=== PATIENT | female | born 1980 | race Caucasian/White ===

== ENCOUNTER 2021-05-29 13:48 | Observation (INO) ==
[2021-05-29] MEDS ORDERED: IOPAMIDOL 100 ML BOTTLE IV ONE (13:49)
[2021-05-29] MEDS ORDERED: ONDANSETRON 4 MG/2 ML VIAL IV ONE (14:25)
[2021-05-29] MEDS ORDERED: PHENobarb/HYOSCY/ATROPINE/SCOP 1 DOSE BOTTLE PO ONE (14:25)
--- NOTE | 2021-05-29 14:41 | Emergency Department Note ---
Nausea/Vomiting/Diarrhea HPI <Queenie Mcgraw PA-C - Last Filed: 05/29/21 19:06> General Chief complaint: Nausea/Vomiting/Diarrhea Time Seen by Provider: 05/29/21 13:58 Source: patient Mode of arrival: ambulatory Limitations: no limitations History of Present Illness HPI Narrative: This is a 41-year-old female patient who was in her usual state of health until this morning when she had an episode of sharp substernal chest pain/epigastric pain followed by an episode of nausea and vomiting. This episode was self- limiting, and then it came back even more intensely followed by another episode of nausea and vomiting. She attempted positional changes to see if this would relieve her symptoms, but it did not. The pain again was self-limiting when she came to the ER and she is currently denying pain or nausea. She denies hematemesis. Does not have a history of GERD, does not feel like this was heartburn. She has no history of coronary artery disease. To her knowledge no family history of early heart disease. No history of clotting disorders or pulmonary embolus. No known history of dissections. Does not use excessive ibuprofen. No history of GI bleeding. No melena or hematochezia. Related Data Home Medications Medication Instructions Recorded Confirmed No Known Home Meds 10/08/19 05/29/21 Allergies Allergy/AdvReac Type Severity Reaction Status Date / Time No Known Drug Allergies Allergy Unverified 10/08/19 12:16 Review of Systems <Queenie Mcgraw PA-C - Last Filed: 05/29/21 19:06> ROS ROS Narrative: Narrative: All systems ED: reviewed and negative except as stated. PFSH <Queenie Mcgraw PA-C - Last Filed: 05/29/21 19:06> Narrative Patient History Narrative: Narrative: Medical/Surgical/Family History All Active Problems (Updated 05/29/21 @ 20:26 by Edi Rocha MD) Cholecystitis, acute with cholelithiasis (Acute) Acute calculous cholecystitis (Acute) Injury of right hand (Acute) Surgical History History of hysterectomy Social History Smoking Status: Never smoker Exam <FELICIANO Salmon Last Filed: 05/29/21 19:06> Narrative Narrative: General: AOx3, NAD, nontoxic appearing. Pleasant and conversant. HEENT: PERRL, EOMI, normocephalic. Moist mucous membranes. Normal facies and normal dentition. Chest: Symmetric, no pain to palpation Respiratory: Lungs clear to auscultation bilaterally. No respiratory distress. Unlabored breathing. Heart: Regular rate and rhythm, no murmurs/clicks/rubs. Abdomen: Non-tender, Non distended, normal bowel tones. Negative Feliciano's, negative McBurney's. No organomegaly. Extremities: Warm and well perfused. No edema. DP 2+ bilaterally. No venous stasis. No unilateral leg swelling. Neuro: No focal deficits. Cranial nerves II-XII grossly normal. Moves all fours against gravity. Skin: Warm dry, no rashes or lesions, no cyanosis. Psych: Normal mood and affect Heme/Lymph: No abnormal bruising General Limitations: no limitations Course <Queenie Mcgraw PA-C - Last Filed: 05/29/21 19:06> Course Course Narrative: 41-year-old female patient presents with chest pain/epigastric pain Reevaluation(s) Reevaluation #1: Obtain basic labs, troponin, chest x-ray and EKG Establish IV and give IV antiemetics, and analgesics Reevaluation #2: EKG is normal sinus rhythm with a rate of [address] deviations to suggest ischemia. She has normal axis, normal intervals. [id number] troponin is undetectable Chest x-ray within normal limits CBC with a white blood cell count of 13,600, no left shift, CMP with slight elevation of AST to 41, otherwise unremarkable Nausea is controlled but patient is still having significant pain after morphine. She states it is "ramping back up." Patient is still having significant pain--> obtain CT of the abdomen pelvis with contrast to rule out SB O, gastric perforation, pancreatitis, cholecystitis Reevaluation #3: CT abdomen pelvis suggests possible cholecystitis. Abdominal ultrasound has been ordered and is pending Give additional Dilaudid 1 mg Additional Reevaluation(s): Abdominal ultrasound shows acute cholecystitis. I discussed case with Dr. Rocha would like the patient admitted for IV antibiotics tonight laparoscopic cholecystectomy tomorrow morning. Patient's pain is controlled with Dilaudid 1 mg Vital Signs Vital signs: Vital Signs Temperature 97.7 F 05/29/21 13:49 Pulse Rate 104 H 05/29/21 13:49 Respiratory Rate 16 05/29/21 13:49 Blood Pressure 134/79 05/29/21 13:49 Pulse Oximetry (%) 100 05/29/21 13:49 Temperature 97.8 F 05/30/21 04:00 Pulse Rate 73 05/30/21 04:00 Respiratory Rate 16 05/30/21 07:01 Blood Pressure 127/77 05/30/21 04:00 Pulse Oximetry (%) 98 05/30/21 07:01 [facility] <Queenie Mcgraw PA-C - Last Filed: 05/29/21 19:06> [facility] Narrative Medical decision making narrative: Acute cholecystitis I discussed case with Dr. Rocha who will take the patient for admission and remove her gallbladder tomorrow. I have started IV Zosyn. Lab Data Result diagrams: 05/30/21 05:27 05/30/21 05:27 Labs: Lab Results 05/29/21 05/29/21 05/29/21 Range/Units 14:37 14:37 14:37 WBC 13.6 H (4.5-11.0) K/mcL RBC 4.43 (3.59-5.38) M/mcL Hgb 12.5 (11.2-15.7) g/dL Hct 38.0 (34.1-44.9) % MCV 85.8 (80.0-100.0) fL MCH 28.2 (26.0-34.0) pg MCHC 32.9 (31.0-36.0) g/dL RDW 14.2 (11.5-14.5) % Plt Count 379 (140-440) K/mcL MPV 11.9 H (7.4-10.4) fL Seg Neutrophils % 76 (38-78) % Band Neutrophils % 7 (0-10) % Lymphocytes % 13 L (15-49) % Monocytes % (Manual) 2 (1-12) % Eosinophils % (Manual) 2 (0-7) % Platelet Estimate Normal (Normal) RBC Morphology Normal (Normal) Sodium 137 (133-145) mmol/L Potassium 3.6 (3.3-5.1) mmol/L Chloride 100 (96-108) mmol/L Carbon Dioxide 26 (22-30) mmol/L Anion Gap 11.0 (8.0-16.0) BUN 10 (6-20) mg/dL Creatinine 0.8 (0.6-1.1) mg/dL GFR Calculation 90 Glucose 109 H (70-105) mg/dL Calcium 9.1 (8.6-10.4) mg/dL Total Bilirubin 0.6 (0.1-1.0) mg/dL AST 41 H (<32) U/L ALT 21 (<40) U/L Alkaline Phosphatase 77 (39-117) U/L Total Protein 7.8 (5.9-8.4) gm/dL Albumin 4.4 (3.2-5.2) gm/dL Globulin 3.4 (2.2-3.7) gm/dL Albumin/Globulin Ratio 1.3 (1.0-2.3) Urine Color Urine Appearance (Clear) Urine pH (5.0-9.0) Ur Specific [place] (1.000-1.035) Urine Protein (Negative) mg/dL Urine Glucose (UA) (Negative) mg/dL Urine Ketones (Negative) mg/dL Urine Occult Blood (Negative) rasheeda/mcL Urine Nitrate (Negative) Urine Bilirubin (Negative) mg/dL Urine Urobilinogen mg/dL Ur Leukocyte Esterase (Negative) /uL Urine RBC (0-3) /hpf Urine WBC (0-4) /hpf Ur Squamous Epith Cells (0-4) /hpf Urine Bacteria (0) /hpf Urine Mucus (None) /hpf Ur Culture Indicated? POC Troponin I 0 L (0.02-0.08) ng/mL 05/29/21 Range/Units 16:45 WBC (4.5-11.0) K/mcL RBC (3.59-5.38) M/mcL Hgb (11.2-15.7) g/dL Hct (34.1-44.9) % MCV (80.0-100.0) fL MCH (26.0-34.0) pg MCHC (31.0-36.0) g/dL RDW (11.5-14.5) % Plt Count (140-440) K/mcL MPV (7.4-10.4) fL Seg Neutrophils % (38-78) % Band Neutrophils % (0-10) % Lymphocytes % (15-49) % Monocytes % (Manual) (1-12) % Eosinophils % (Manual) (0-7) % Platelet Estimate (Normal) RBC Morphology (Normal) Sodium (133-145) mmol/L Potassium (3.3-5.1) mmol/L Chloride (96-108) mmol/L Carbon Dioxide (22-30) mmol/L Anion Gap (8.0-16.0) BUN (6-20) mg/dL Creatinine (0.6-1.1) mg/dL GFR Calculation Glucose (70-105) mg/dL Calcium (8.6-10.4) mg/dL Total Bilirubin (0.1-1.0) mg/dL AST (<32) U/L ALT (<40) U/L Alkaline Phosphatase (39-117) U/L Total Protein (5.9-8.4) gm/dL Albumin (3.2-5.2) gm/dL Globulin (2.2-3.7) gm/dL Albumin/Globulin Ratio (1.0-2.3) Urine Color Yellow Urine Appearance Clear (Clear) Urine pH 7.0 (5.0-9.0) Ur Specific [place] 1.015 (1.000-1.035) Urine Protein Negative (Negative) mg/dL Urine Glucose (UA) Negative (Negative) mg/dL Urine Ketones Negative (Negative) mg/dL Urine Occult Blood Negative (Negative) rasheeda/mcL Urine Nitrate Negative (Negative) Urine Bilirubin Negative (Negative) mg/dL Urine Urobilinogen Normal mg/dL Ur Leukocyte Esterase Negative (Negative) /uL Urine RBC < 1 (0-3) /hpf Urine WBC 0 (0-4) /hpf Ur Squamous Epith Cells 1 (0-4) /hpf Urine Bacteria None (0) /hpf Urine Mucus Few A (None) /hpf Ur Culture Indicated? No POC Troponin I (0.02-0.08) ng/mL ED POC Tests ED POC Tests: ELIZABETH - SARS Antigen Negative Discharge Plan Patient/Caregiver Discharge Instructions Pt seen by SUPERVISOR SANDBLASTER/PA only: Yes Clinical Impression: Acute calculous cholecystitis Patient Disposition: Xfer As Inpt ([facility]) Condition: Good Discharge Date/Time: 05/29/21 18:40 Discharge Location: [facility]
[2021-05-29] MEDS ORDERED: morphine 4 MG/ML VIAL IV ONE (15:06)
[2021-05-29 15:34] LABS: Hemoglobin 12.5 g/dL (11.2-15.7); Mean Cell Volume 85.8 fL (80.0-100.0); Mean Corpuscular HGB Conc 32.9 g/dL (31.0-36.0); Mean Platelet Volume 11.9 fL (7.4-10.4); Platelet Count 379 K/mcL (140-440); RBC 4.43 M/mcL (3.59-5.38); Red Cell Distribution Width 14.2 % (11.5-14.5); WBC 13.6 K/mcL (4.5-11.0)
--- NOTE | 2021-05-29 15:59 | XRay Report ---
INDICATION: query dissection TECHNIQUE: AP portable upright chest x-ray COMPARISON: None FINDINGS: Lungs:Lungs are negative. No focal pulmonary parenchymal infiltrate or mass Heart, vascular:No significant cardiomegaly. Pulmonary vascularity is normal. No pulmonary edema or pulmonary congestion Mediastinum, elvin:No mediastinal widening. No hilar mass Pleura:No pleural fluid. No pleural-based mass or calcification Skeletal:Negative. IMPRESSION: Negative AP chest x-ray Interpreted and Authenticated by: Jean Carlos Lorenzo 05/29/21
[2021-05-29 16:02] LABS: ALT/SGPT 21 U/L (<40); AST/SGOT 41 U/L (<32); Albumin 4.4 gm/dL (3.2-5.2); Albumin/Globulin Ratio 1.3 (1.0-2.3); Alkaline Phosphatase 77 U/L (39-117); Bilirubin,Total 0.6 mg/dL (0.1-1.0); Blood Urea Nitrogen 10 mg/dL (6-20); Calcium 9.1 mg/dL (8.6-10.4); Carbon Dioxide 26 mmol/L (22-30); Chloride 100 mmol/L (96-108); Globulin 3.4 gm/dL (2.2-3.7); Glomerular Filtration Rate 90; Glucose 109 mg/dL (70-105)
[2021-05-29 16:19] LABS: Band Neutrophils % 7 % (0-10); Eosinophils % (Manual) 2 % (0-7); Lymphocytes % 13 % (15-49); Monocytes % (Manual) 2 % (1-12); Platelet Estimate NORMAL (Normal); RBC Morphology NORMAL (Normal); Segmented Neutrophils % 76 % (38-78)
[2021-05-29] MEDS ORDERED: PANTOPRAZOLE 40 MG VIAL IV ONE (16:49)
[2021-05-29] MEDS ORDERED: SUCRALFATE 1 GM/10 ML ORAL.SUSP PO ONE (16:49)
--- NOTE | 2021-05-29 17:37 | Cat Scan Report ---
INDICATION: r/o gallbladder COMPARISON: None. TECHNIQUE: Axial images were obtained through the abdomen and pelvis. Sagittally and coronally reformatted images. 80 mL Isovue 370 injected intravenously. Oral contrast material was not administered FINDINGS: Lung bases:Negative. No pulmonary parenchymal nodule. No pleural fluid or pericardial fluid Liver:Negative. No focal intrahepatic mass. No focal abnormality. Liver contour is smooth. No evidence for cirrhosis Gallbladder, bilary:Gallbladder is not distended. No calcified gallstones. Gallbladder wall is slightly indistinct and there may be mild pericholecystic fluid. Gallbladder ultrasound may be helpful for better evaluation of the gallbladder. No significant intrahepatic bile duct dilatation. Common bile duct measures 6 mm. No detectable choledocholithiasis Spleen:No splenomegaly. Normal enhancement of splenic and portal veins. Pancreas:No pancreatic mass. No peripancreatic abnormality Adrenal glands:Negative Kidneys,ureters,bladder:No solid renal mass. No hydronephrosis. No obstructing or nonobstructing calculi. No hydroureter. No ureteral calculus. Bladder is collapsed Gastrointestinal:No detectable colonic mass. There is no diverticulitis. Negative small bowel. No mechanical small bowel obstruction. No bowel wall thickening. No focal abnormality. Negative stomach and duodenum. No focal abnormality. Appendix: The appendix is negative Vascular:Negative abdominal aorta. Superior mesenteric artery and celiac trunk are normal. Normal opacification of the inferior mesenteric artery Lymphatic:No retroperitoneal or mesenteric adenopathy Mesentery, peritoneum: No free intraperitoneal fluid. No mesenteric or retroperitoneal mass. No intra-abdominal abscess. Reproductive:Probable hysterectomy. No adnexal mass Musculoskeletal:No lumbar compression fractures. Sacrum and pelvis are negative. No hip fracture. No abdominal wall or inguinal hernia IMPRESSION: 1. Nondistended gallbladder. 2. Possible mild pericholecystic inflammation. Gallbladder ultrasound recommended The exam was performed using radiation dose optimization techniques including, but not limited to, automated exposure control, adjustment of the mA and/or kV according to patient size and use of iterative reconstruction technique. Interpreted and Authenticated by: Jean Carlos Lorenzo 05/29/21
[2021-05-29] MEDS ORDERED: HYDROmorphone 1 MG/ML SYRINGE IV ONE (17:40)
[2021-05-29 17:49] LABS: Appearance,Urine Clear (Clear); Bilirubin,Urine Negative (Negative); Color,Urine Yellow; Culture Indicated,Urine No; Glucose,Urine (UA) Negative (Negative); Ketones,Urine Negative (Negative); Leukocyte Esterase,Urine Negative /uL (Negative); Mucus,Urine FEW /hpf; Nitrate,Urine Negative (Negative); Protein,Urine Negative (Negative); Specific Gravity,Urine 1.015 (1.000-1.035); Urine Blood Negative ery/mcL (Negative); Urine RBC < 1 /hpf (0-3); Urine Squamous Epithelial Cell 1 /hpf (0-4); Urine WBC 0 /hpf (0-4); Urobilinogen,Urine Normal
--- NOTE | 2021-05-29 18:43 | Ultrasound Report ---
INDICATION: query cholecystitis TECHNIQUE: Grayscale and color flow Doppler spectral imaging COMPARISON: Previous CT scan dated 05/29/2021 FINDINGS: Gallbladder:Gallbladder is filled with stones. Gallbladder wall is irregular and thickened with a maximal thickness of 5.6 mm. There is no pericholecystic fluid. The patient was tender consistent with positive sonographic Feliciano's sign. Common bile duct:No intra or extrahepatic bile duct dilatation.. Common bile duct measures5 mm Liver:No solid or cystic hepatic mass. Liver contour is smooth. No ascites.. Liver [id number] cm Portal vein:Normal hepatopedal portal venous flow Pancreas:Visualized portions of the pancreas are normal IMPRESSION: Gallbladder filled with stones. Irregular thickened wall. Findings consistent with cholecystitis Interpreted and Authenticated by: Jean Carlos Lorenzo 05/29/21
[2021-05-29] MEDS ORDERED: PIPERACILLIN SODIUM/TAZOBACTAM 3.375 GM in DEXTROSE 5% IN WATER 50 ML IV ONE (18:49)
[2021-05-29] MEDS ORDERED: PROMETHAZINE 25 MG/ML VIAL IV PRN (20:12)
--- NOTE | 2021-05-29 20:27 | General Surg History&Physical ---
HPI History of Present Illness Patient information: Note initiated : 05/29/21 at 8:21 pm Service Date, if different from initiated Date: [] Patient: Stephani Yanes a 41 y/o F admitted on for Nausea. Chief Complaint: [] History of present illness: Ms. Yanes is a 41 year old F with acute onset of severe lower sternal chest pain earlier this morning. This was followed by increasing abdominal pressure and pain with nausea and vomiting. It continued throughout the day and she finally presented to the emergency room. She was afebrile but had tender epigastrium and right upper quadrant. Ultrasound shows gallbladder filled with stones with thickening of the gallbladder wall. CT of the abdomen suggests small amount of pericholecystic fluid. Patient has white count of 13,600. She is admitted with acute cholecystitis and will have cholecystectomy in the morning. Review of Systems All systems: reviewed and no additional remarkable complaints except as stated PFSH PFSH All Active Problems (Updated 05/29/21 @ 20:26 by Edi Rocha MD) Cholecystitis, acute with cholelithiasis (Acute) Acute calculous cholecystitis (Acute) Injury of right hand (Acute) Surgical History History of hysterectomy MEDS/ALLERGIES Home Medications and Allergies Home Medications Medication Instructions Recorded Confirmed Type No Known Home Meds 10/08/19 10/08/19 History Allergies Allergy/AdvReac Type Severity Reaction Status Date / Time No Known Drug Allergies Allergy Unverified 10/08/19 12:16 Physical Examination Vital Signs Vital signs: Temp Pulse Resp BP Pulse Ox 98.8 F 76 16 120/66 99 05/29/21 14:19 05/29/21 20:01 05/29/21 20:01 05/29/21 20:01 05/29/21 20:01 General physical appearance General physical exam: well developed, well nourished, no distress, moderate pain and obese Eyes Eye exam: PERRL and normal ocular movement ENT ENT exam: normal mucosa and no congestion Head Head exam IM: Present atraumatic, normal inspection and normocephalic Neck Neck exam: no masses, no bruits, trachea midline, no lymphadenopathy and no venous distension Cardiovascular Cardiovascular exam IM: Present normal rate and rhythm, RRR, +S1 and +S2; Absent JVD or systolic murmur Respiratory Respiratory exam: normal expansion and clear to auscultation Abdomen Abdomen: Present tender (Epigastric and right upper quadrant tenderness) and distended Integumentary Integumentary: Present no rash, no growths and no abnormal pigmentation Neurologic Neurologic: Present normal coordination and normal sensation Musculoskeletal Musculoskeletal: Present normal gait and normal posture Psychiatric Psychiatric: Present oriented to time, oriented to person, oriented to place, speech is normal and memory intact Results Labs Result diagrams: 05/29/21 14:37 05/29/21 14:37 Labs: Abnormal lab results 05/29/21 05/29/21 05/29/21 Range/Units 14:37 14:37 14:37 WBC 13.6 H (4.5-11.0) K/mcL MPV 11.9 H (7.4-10.4) fL Lymphocytes % 13 L (15-49) % Glucose 109 H (70-105) mg/dL AST 41 H (<32) U/L Urine Mucus (None) /hpf POC Troponin I 0 L (0.02-0.08) ng/mL 05/29/21 Range/Units 16:45 WBC (4.5-11.0) K/mcL MPV (7.4-10.4) fL Lymphocytes % (15-49) % Glucose (70-105) mg/dL AST (<32) U/L Urine Mucus Few A (None) /hpf POC Troponin I (0.02-0.08) ng/mL Diabetes panel 05/29/21 Range/Units 14:37 Sodium 137 (133-145) mmol/L Potassium 3.6 (3.3-5.1) mmol/L Chloride 100 (96-108) mmol/L Carbon Dioxide 26 (22-30) mmol/L BUN 10 (6-20) mg/dL Creatinine 0.8 (0.6-1.1) mg/dL Glucose 109 H (70-105) mg/dL Calcium 9.1 (8.6-10.4) mg/dL AST 41 H (<32) U/L ALT 21 (<40) U/L Alkaline Phosphatase 77 (39-117) U/L Total Protein 7.8 (5.9-8.4) gm/dL Albumin 4.4 (3.2-5.2) gm/dL Calcium panel 05/29/21 Range/Units 14:37 Calcium 9.1 (8.6-10.4) mg/dL Albumin 4.4 (3.2-5.2) gm/dL Pituitary panel 05/29/21 Range/Units 14:37 Sodium 137 (133-145) mmol/L Potassium 3.6 (3.3-5.1) mmol/L Chloride 100 (96-108) mmol/L Carbon Dioxide 26 (22-30) mmol/L BUN 10 (6-20) mg/dL Creatinine 0.8 (0.6-1.1) mg/dL Glucose 109 H (70-105) mg/dL Calcium 9.1 (8.6-10.4) mg/dL Adrenal panel 05/29/21 Range/Units 14:37 Sodium 137 (133-145) mmol/L Potassium 3.6 (3.3-5.1) mmol/L Chloride 100 (96-108) mmol/L Carbon Dioxide 26 (22-30) mmol/L BUN 10 (6-20) mg/dL Creatinine 0.8 (0.6-1.1) mg/dL Glucose 109 H (70-105) mg/dL Calcium 9.1 (8.6-10.4) mg/dL Total Bilirubin 0.6 (0.1-1.0) mg/dL AST 41 H (<32) U/L ALT 21 (<40) U/L Alkaline Phosphatase 77 (39-117) U/L Total Protein 7.8 (5.9-8.4) gm/dL Albumin 4.4 (3.2-5.2) gm/dL All other labs normal. A/P Assessment and plan (1) Cholecystitis, acute with cholelithiasis: Status: Acute Narrative A/P Narrative: Admit to observation IV normal saline at 125 cc/h Zosyn 3.375 g IV every 6 hours Promethazine 12.5 mg IV every 6 hours as needed for nausea Dilaudid 1 mg IV every 2 hours as needed pain Consent for laparoscopic cholecystectomy to be performed in the morning N.p.o. after midnight Time Spent With Patient Time: Total time spent is greater than 50% in coordination of care (as documented) at patient's floor/unit and/or counseling patient:
[2021-05-29] MEDS: 0.9 % SODIUM CHLORIDE 10 ML SYRINGE IV SCH (21:48)
[2021-05-29] MEDS: HYDROmorphone 1 MG/ML SYRINGE IV PRN (21:49)
[2021-05-29] MEDS: 0.9 % SODIUM CHLORIDE 1,000 ML IV SCH (21:49)
[2021-05-29] MEDS: PIPERACILLIN SODIUM/TAZOBACTAM 3.375 GM in DEXTROSE 5% IN WATER 50 ML IV SCH (23:11)
[2021-05-29] MEDS: ONDANSETRON 4 MG/2 ML VIAL IV PRN (23:15)
[2021-05-30] MEDS: HYDROmorphone 1 MG/ML SYRINGE IV PRN ×6 (01:35→17:32)
[2021-05-30] MEDS: 0.9 % SODIUM CHLORIDE 10 ML SYRINGE IV SCH ×5 (04:50→20:17)
[2021-05-30] MEDS: PIPERACILLIN SODIUM/TAZOBACTAM 3.375 GM in DEXTROSE 5% IN WATER 50 ML IV SCH ×4 (05:24→23:24)
[2021-05-30] MEDS: ONDANSETRON 4 MG/2 ML VIAL IV PRN ×3 (05:52→17:32)
[2021-05-30] MEDS: 0.9 % SODIUM CHLORIDE 1,000 ML IV SCH ×3 (06:06→20:18)
[2021-05-30 06:27] LABS: Basophils # (Auto) 0.04 K/mcL (0.00-0.30); Basophils % (Auto) 0.5 % (0.0-2.0); Eosinophils # (Auto) 0.07 K/mcL (0.00-0.70); Eosinophils % (Auto) 0.9 % (0.0-7.0); Hematocrit 34.8 % (34.1-44.9); Hemoglobin 11.3 g/dL (11.2-15.7); Lymphocytes # (Auto) 1.96 K/mcL (1.50-4.80); Lymphocytes % (Auto) 24.9 % (15.5-49.0); Mean Corpuscular HGB Conc 32.5 g/dL (31.0-36.0); Mean Platelet Volume 11.8 fL (7.4-10.4); Monocytes # (Auto) 0.51 K/mcL (0.10-0.90); Monocytes % (Auto) 6.5 % (1.0-12.0); Neutrophils % (Auto) 67.2 % (38.0-78.0); Platelet Count 348 K/mcL (140-440); Red Cell Distribution Width 14.4 % (11.5-14.5); WBC 7.9 K/mcL (4.5-11.0)
[2021-05-30 06:49] LABS: ALT/SGPT 257 U/L (<40); AST/SGOT 454 U/L (<32); Albumin 3.7 gm/dL (3.2-5.2); Albumin/Globulin Ratio 1.2 (1.0-2.3); Alkaline Phosphatase 82 U/L (39-117); Bilirubin,Total 1.2 mg/dL (0.1-1.0); Blood Urea Nitrogen 8 mg/dL (6-20); Calcium 8.4 mg/dL (8.6-10.4); Carbon Dioxide 25 mmol/L (22-30); Chloride 103 mmol/L (96-108); Glomerular Filtration Rate 78; Glucose 94 mg/dL (70-105)
[2021-05-30] MEDS ORDERED: fentaNYL 100 MCG/2 ML VIAL IV ONE (08:50)
[2021-05-30] MEDS ORDERED: MIDAZOLAM 5 MG/5 ML VIAL ONE (08:50)
[2021-05-30] MEDS ORDERED: ROCURONIUM 10 MG/ML ML IV ONE (08:50)
[2021-05-30] MEDS ORDERED: SUGAMMADEX SODIUM 200 MG/2 ML VIAL IV ONE (08:50)
[2021-05-30] MEDS ORDERED: LIDOCAINE HCL/PF 100 MG/5 ML SYRINGE IV ONE (08:50)
[2021-05-30] MEDS ORDERED: DEXAMETHASONE 10 MG/ML VIAL ONE (08:50)
[2021-05-30] MEDS ORDERED: ONDANSETRON 4 MG/2 ML VIAL ONE (08:50)
[2021-05-30] MEDS ORDERED: PROPOFOL 200 MG/20 ML VIAL IV ONE (08:50)
[2021-05-30] MEDS ORDERED: SCOPOLAMINE 1 PATCH PATCH TOPICAL PRN (09:00)
[2021-05-30] MEDS ORDERED: IPRATROPIUM/ALBUTEROL 3 ML AMPUL.NEB NEB PRN ×2 (09:00→09:25)
[2021-05-30] MEDS ORDERED: METHOCARBAMOL 1,000 MG/10 ML VIAL IV PRN (09:25)
[2021-05-30] MEDS ORDERED: diphenhydrAMINE 50 MG/ML VIAL IV PRN (09:25)
[2021-05-30] MEDS ORDERED: MEPERIDINE 25 MG/ML VIAL IV PRN (09:25)
[2021-05-30] MEDS ORDERED: ePHEDrine 50 MG/ML AMPUL IV PRN (09:25)
[2021-05-30] MEDS ORDERED: NALOXONE HCL 0.4 MG/ML VIAL IV PRN (09:25)
[2021-05-30] MEDS ORDERED: PROMETHAZINE 25 MG/ML VIAL IV PRN (09:25)
--- NOTE | 2021-05-30 10:03 | Brief Operative Note ---
Brief Operative Note Date of procedure: 05/30/21 Pre-op diagnosis: cholelithiasis with cholecystitis Post-op diagnosis: other (cholelithiasis with cholecystitis) Procedure: laparoscopic cholecystectomy Grafts/Implants: No Anesthesia: GETA Findings: acutely inflamed fibrotic gall baldder filled with stones Complications: none Surgeon: Edi Rocha Estimated blood loss (cc): 10 Condition: stable Disposition: PACU
[2021-05-30] MEDS: fentaNYL 100 MCG/2 ML VIAL IV PRN ×4 (10:23→10:29)
[2021-05-30] MEDS ORDERED: HYDROmorphone 0.5 MG/0.5 ML SYRINGE IV PRN (10:33)
[2021-05-30] MEDS ORDERED: HYDROmorphone 0.5 MG/0.5 ML SYRINGE ONE (10:42)
[2021-05-30] MEDS: ACETAMINOPHEN 1,000 MG/100 ML BAG IV PRN (12:14)
[2021-05-30] MEDS: oxyCODONE HCL 5 MG TABLET PO PRN ×2 (20:15→23:23)
[2021-05-31] MEDS: oxyCODONE HCL 5 MG TABLET PO PRN ×2 (04:01→11:24)
[2021-05-31] MEDS: PIPERACILLIN SODIUM/TAZOBACTAM 3.375 GM in DEXTROSE 5% IN WATER 50 ML IV SCH ×2 (05:00→11:25)
[2021-05-31] MEDS: 0.9 % SODIUM CHLORIDE 10 ML SYRINGE IV SCH ×4 (05:00→13:01)
[2021-05-31] MEDS: 0.9 % SODIUM CHLORIDE 1,000 ML IV SCH ×2 (05:00→11:35)
[2021-05-31] MEDS: ACETAMINOPHEN 1,000 MG/100 ML BAG IV PRN (06:26)
--- NOTE | 2021-05-31 12:53 | General Surgery Progress Note ---
SUBJECTIVE Subjective Patient information: Note initiated : 05/31/21 at 12:52 pm Service Date, if different from initiated Date: [] Patient: Stephani Yanes 41 y/o F admitted on 05/29/21 for Nausea. Chief Complaint: [] Principal diagnosis: Cholelithiasis with cholecystitis Interval history: Patient is stable. She states that she feels well. Her pain is controlled. She denies nausea. Constitutional Vitals: Vital Signs Temp Pulse Resp BP Pulse Ox 98 F 67 16 126/72 98 05/31/21 11:35 05/31/21 11:35 05/31/21 11:35 05/31/21 11:35 05/31/21 11:35 Period Temp Pulse Resp BP Sys/Foster Pulse Ox Last 24 Hr 97.9 F-99.0 F 55-77 16-18 120-149/58-80 95-99 Intake and Output 05/30/21 05/31/21 05/31/21 21:59 05:59 13:59 Intake Total 1050 700 150 Output Total 950 1350 Balance 100 -650 150 Weight 250 lb 1.6 oz Intake & Output: Intake & Output 05/30/21 05/31/21 05/31/21 21:59 05:59 13:59 Intake Total 1050 700 150 Output Total 950 1350 Balance 100 -650 150 Weight 250 lb 1.6 oz Intake: IV 1050 100 150 Sodium Chloride 0.9% 1,000 ml @ 1000 125 mls/hr IV .Q8H DUGLAS Rx#: [id number] Zosyn 3.375 gm In Dextrose 5% 50 100 50 in Water 50 ml @ 100 mls/hr IV Q6H DUGLAS Rx#:[id number] Oral 600 Output: Void Amount 950 1350 Other: Urine Appearance Clear Clear Clear Urine Color Bright Yellow Bright Yellow Pale Urine Odor Normal # Voids 1 Eye Eye exam: Present EOMI; Absent scleral icterus Pupils: Present normal accommodation and PERRL ENT ENT exam: Present mucous membranes moist, normal exam and normal oropharynx Neck Neck exam: Present full ROM; Absent tenderness Respiratory Respiratory exam: Present normal respiratory exam and CTAB; Absent rales or rhonchi Cardiovascular Cardiovascular exam: Present normal rate and rhythm, RRR, +S1 and +S2; Absent gallop or JVD GI/Abdominal GI/Abdominal exam: Present normal bowel sounds, soft and distended (Mild abdominal distention) Extremities Exam Extremities exam: Present full ROM and neurovascular intact Neurological Exam Neurological exam: Present CN II-XII intact, normal gait and oriented X3; Absent motor sensory deficit Psychiatric Psychiatric exam: Present normal affect and normal mood A/P Narrative A/P Narrative: Patient is clinically stable however her preoperative LFTs were slightly elevated. We will check CBC and liver panel prior to discharge. Time Spent With Patient Time: Total time spent is greater than 50% in coordination of care (as documented) at patient's floor/unit and/or counseling patient:
[2021-05-31 13:09] LABS: Basophils # (Auto) 0.07 K/mcL (0.00-0.30); Basophils % (Auto) 0.6 % (0.0-2.0); Eosinophils # (Auto) 0.15 K/mcL (0.00-0.70); Eosinophils % (Auto) 1.4 % (0.0-7.0); Hematocrit 35.3 % (34.1-44.9); Hemoglobin 11.4 g/dL (11.2-15.7); Lymphocytes # (Auto) 1.76 K/mcL (1.50-4.80); Mean Cell Volume 88.7 fL (80.0-100.0); Mean Corpuscular HGB Conc 32.3 g/dL (31.0-36.0); Mean Platelet Volume 11.8 fL (7.4-10.4); Monocytes # (Auto) 0.47 K/mcL (0.10-0.90); Monocytes % (Auto) 4.3 % (1.0-12.0); Neutrophils % (Auto) 77.7 % (38.0-78.0); Platelet Count 357 K/mcL (140-440); RBC 3.98 M/mcL (3.59-5.38); Red Cell Distribution Width 14.6 % (11.5-14.5)
[2021-05-31 13:26] LABS: ALT/SGPT 372 U/L (<40); AST/SGOT 310 U/L (<32); Albumin 3.9 gm/dL (3.2-5.2); Albumin/Globulin Ratio 1.1 (1.0-2.3); Alkaline Phosphatase 101 U/L (39-117); Bilirubin,Direct 0.5 mg/dL (<0.3); Bilirubin,Total 1.3 mg/dL (0.1-1.0); Blood Urea Nitrogen 7 mg/dL (6-20); Calcium 8.5 mg/dL (8.6-10.4); Carbon Dioxide 25 mmol/L (22-30); Chloride 102 mmol/L (96-108); Globulin 3.4 gm/dL (2.2-3.7); Glomerular Filtration Rate 78; Glucose 91 mg/dL (70-105); Lactate Dehydrogenase 230 U/L (135-225); Phosphorous 2.3 mg/dL (2.5-4.5); Triglycerides 54 mg/dL (<150); Uric Acid 2.6 mg/dL (2.5-8.0)
--- NOTE | 2021-05-31 14:23 | Discharge Summary ---
Discharge Provider Provider Patient information: Note initiated : 05/31/21 at 2:18 pm Service Date, if different from initiated Date: [] Patient: Stephani Yanes 41 y/o F admitted on 05/29/21 for Nausea. Chief Complaint: [] Date of admission: 05/29/21 20:40 Discharge date: 05/31/21 Primary care physician: PCP No Admitting clinician: Edi Rocha Attending physician on admission: Edi Rocha Consults: 05/29/21 Consult to Physician [CONS] Stat Comment: Consulting Provider: Edi Rocha Reason For Exam: Physician to Consult Attending physician on discharge: Edi Rocha Discharging clinician: Edi Rocha COURSE Hospital Course Hospital course: 41-year-old female who was admitted yesterday with acute cholecystitis with cholelithiasis. She underwent laparoscopic cholecystectomy yesterday without difficulty. She had a slight rise in LFTs but her bilirubin and alkaline phosphatase are normal. She is clinically stable at this time and is ready for discharge. Discharge diagnosis: Acute cholecystitis with cholelithiasis Reason for admission: Postoperative cholecystectomy Procedures: Laparoscopic cholecystectomy Pertinent studies/significant findings: CT of abdomen and pelvis with IV contrast 9 upper abdominal ultrasound Complications: None Time Spent with Patient Time attestation: Total time spent providing and/or coordinating discharge services: Physical Examination Vital Signs Vital signs: Temp Pulse Resp BP Pulse Ox 98 F 67 16 126/72 98 05/31/21 11:35 05/31/21 11:35 05/31/21 11:35 05/31/21 11:35 05/31/21 11:35 General physical appearance General physical exam: well developed, no distress and moderate pain Eyes Eye exam: PERRL and normal ocular movement ENT ENT exam: normal mucosa and no congestion Head Head exam IM: Present atraumatic, normal inspection and normocephalic Neck Neck exam: no masses, no bruits, trachea midline, no lymphadenopathy and no venous distension Cardiovascular Cardiovascular exam IM: Present normal rate and rhythm, RRR, +S1 and +S2; Absent JVD Respiratory Respiratory exam: normal expansion, normal respiratory effort and clear to auscultation Abdomen Abdomen: Present soft, tender (Mild tenderness around port sites) and bowel sounds (Bowel sounds ) Integumentary Integumentary: Present no rash and no growths Neurologic Neurologic: Present normal coordination and normal sensation Musculoskeletal Musculoskeletal: Present normal gait and normal posture Psychiatric Psychiatric: Present oriented to time, oriented to person, oriented to place, speech is normal and memory intact Discharge Plan Patient/Caregiver Discharge Instructions Activity: increase activity as tolerated Diet: Regular Diet and Low Fat Prescriptions: New hydrocodone-acetaminophen 10-325 mg Tablet 1 tab PO Q4H PRN (Reason: Pain) Qty: 30 0RF Follow Up Plan Follow up with: Edi Rocha MD [Physician] - (Follow-up in the office in 2 weeks Contact office in the a.m. to set up appointment) No,PCP [Primary Care Provider] - Patient Disposition: Home, Self-Care Prognosis: Good Rehab Potential: Good I certify that the patient requires SNF services: No Overall status at discharge: patient is progressing back to baseline Discharge Orders: Discharge Order (Routine); Ordered 05/31/21 Ordered By: Edi Rocha Pending Pending Pending: Resuscitation Status Resuscitate (Full Code) Diet Regular Diet Start Sun May 31 0800 Hydromorphone HCl (Hydromorphone 1 Mg/Ml Syringe) 1 mg IV Q2HP PRN; Protocol PRN Reason: Per Pain Protocol Last Admin: 05/30/21 17:32 Dose: 1 mg Documented by: Admin: 05/30/21 15:10 Dose: 1 mg Documented by: Admin: 05/30/21 13:12 Dose: 1 mg Documented by: Admin: 05/30/21 11:06 Dose: 1 mg Documented by: Admin: 05/30/21 05:52 Dose: 1 mg Documented by: Admin: 05/30/21 01:35 Dose: 1 mg Documented by: Admin: 05/29/21 21:49 Dose: 1 mg Documented by: LEXY Sodium Chloride (Sodium Chloride 0.9%) 1,000 mls @ 125 mls/hr IV .Q8H [facility] Last Admin: 05/31/21 11:35 Dose: 125 mls/hr Documented by: Admin: 05/31/21 05:00 Dose: Not Given Documented by: Infusion: 05/30/21 21:00 Dose: 125 mls/hr Documented by: Admin: 05/30/21 20:18 Dose: Not Given Documented by: Admin: 05/30/21 11:01 Dose: 125 mls/hr Documented by: Infusion: 05/30/21 11:01 Dose: 125 mls/hr Documented by: Admin: 05/30/21 06:06 Dose: 125 mls/hr Documented by: Infusion: 05/30/21 06:06 Dose: 0 mls/hr Documented by: Admin: 05/29/21 21:49 Dose: 125 mls/hr Documented by: LEXY Piperacillin Sod/Tazobactam (Sod 3.375 gm/ Dextrose) 50 mls @ 100 mls/hr IV Q6H DUGLAS; Protocol Last Infusion: 05/31/21 11:55 Dose: 0 mls/hr Documented by: Admin: 05/31/21 11:25 Dose: 100 mls/hr Documented by: Infusion: 05/31/21 05:35 Dose: 0 mls/hr Documented by: Admin: 05/31/21 05:00 Dose: 100 mls/hr Documented by: Infusion: 05/30/21 23:54 Dose: 0 mls/hr Documented by: Admin: 05/30/21 23:24 Dose: 100 mls/hr Documented by: Infusion: 05/30/21 17:54 Dose: 0 mls/hr Documented by: Admin: 05/30/21 17:24 Dose: 100 mls/hr Documented by: Infusion: 05/30/21 11:40 Dose: 0 mls/hr Documented by: Admin: 05/30/21 11:08 Dose: 100 mls/hr Documented by: Infusion: 05/30/21 05:56 Dose: 0 mls/hr Documented by: Admin: 05/30/21 05:24 Dose: 100 mls/hr Documented by: Infusion: 05/29/21 23:41 Dose: 0 mls/hr Documented by: Admin: 05/29/21 23:11 Dose: 100 mls/hr Documented by: LEXY Acetaminophen (Ofirmev) 1,000 mg in 100 mls @ 200 mls/hr IV Q6HP PRN; Protocol PRN Reason: Pain Last Infusion: 05/31/21 06:57 Dose: 0 mls/hr Documented by: Admin: 05/31/21 06:26 Dose: 200 mls/hr Documented by: Infusion: 05/30/21 12:45 Dose: 200 mls/hr Documented by: Admin: 05/30/21 12:14 Dose: 200 mls/hr Documented by: MASSIEL Ondansetron HCl (Ondansetron 4 Mg/2 Ml Vial) 4 mg IV Q6HP PRN PRN Reason: Nausea And Vomiting Last Admin: 05/30/21 17:32 Dose: 4 mg Documented by: Admin: 05/30/21 10:25 Dose: 4 mg Documented by: Admin: 05/30/21 05:52 Dose: 4 mg Documented by: Admin: 05/29/21 23:15 Dose: 4 mg Documented by: LEXY Oxycodone HCl (Oxycodone Hcl 5 Mg Tablet) 10 mg PO Q4HP PRN; Protocol PRN Reason: Per Pain Protocol Last Admin: 05/31/21 11:24 Dose: 10 mg Documented by: Admin: 05/31/21 04:01 Dose: 10 mg Documented by: Admin: 05/30/21 23:23 Dose: 10 mg Documented by: Admin: 05/30/21 20:15 Dose: 5 mg Documented by: HALEY Promethazine HCl (Promethazine 25 Mg/Ml Vial) 12.5 mg IV Q6HP PRN PRN Reason: Nausea And Vomiting Last Admin: 05/30/21 13:12 Dose: 12.5 mg Documented by: MASSIEL Sodium Chloride (0.9 % Sodium Chloride 10 Ml Syringe) 10 ml IV Q8 DUGLAS Last Admin: 05/31/21 13:01 Dose: Not Given Documented by: Admin: 05/31/21 05:00 Dose: Not Given Documented by: Admin: 05/30/21 20:17 Dose: Not Given Documented by: Admin: 05/30/21 15:00 Dose: 10 ml Documented by: Admin: 05/30/21 04:50 Dose: Not Given Documented by: Admin: 05/29/21 21:48 Dose: 10 ml Documented by: LEXY Sodium Chloride (0.9 % Sodium Chloride 10 Ml Syringe) 10 ml IV Q8 DUGLAS Last Admin: 05/31/21 13:01 Dose: Not Given Documented by: Admin: 05/31/21 05:00 Dose: Not Given Documented by: Admin: 05/30/21 20:17 Dose: Not Given Documented by: Admin: 05/30/21 15:00 Dose: 10 ml Documented by: MASSIEL Shift Summary 05/31/21 03:05 Shift Summary by Rocio Dhillon Primary Diagnosis: Cholelithiasis w/ cholecystitis Registration Status: M/S Day of Hospitalization: 05/29 Date of Surgery (if applicable): 05/30 - laparoscopic cholecystectomy Pertinent Medical : None Vital Signs : VSS on RA Neuro : A&OX4 Ambulation status : Up to BR independently, amb in garrison w/ supervision X1 Diet : Full Liq, denies Nausea. PRN Meds : Oxy 5mg given @ 2020 w/ fair effect on abd pain. Oxy 10mg given @ 2323 w/ better effect. Lines/Tubes: NS @ 125/hr into RFA. Lab/Rad results: Void / BM: AUO per toilet, No BM this shift. Skin/Wound : Lap sites X4, shadow drng under film dsg. Recommendations/questions for MD (CARLOTA Mayo? CARLOTA CARTER? PICC needed?): Expected date of discharge: Today, 05/31 Discharge Plan (needs, disposition, etc): To return home. Initialized on 05/31/21 03:05 - END OF NOTE
--- NOTE | 2021-05-31 20:12 | EKG ---
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
--- NOTE | 2021-06-03 12:25 | Operative Note ---
DATE OF OPERATION: 05/30/2021 PREOPERATIVE DIAGNOSIS: Cholelithiasis with cholecystitis. POSTOPERATIVE DIAGNOSIS: Cholelithiasis with cholecystitis. PROCEDURE: Laparoscopic cholecystectomy. SURGEON: Edi Rocha M.D. FINDINGS: Acutely inflamed, fibrotic gallbladder filled with stones. DESCRIPTION OF PROCEDURE: Under general anesthesia, the patient's abdomen was prepped and draped in a sterile field. Timeout procedure was carried out as per protocol. Supraumbilical incision was made and Veress needle was inserted uneventfully. Abdomen was insufflated with 2 liters of CO2. A 12 mm port was placed. Laparoscope was placed. Under videoscopic guidance, a 12 mm port and two 5 mm ports were placed in the right subcostal region. Gallbladder was grasped and positioned. It was acutely inflamed and fibrotic. It was also filled with stones. It was grasped and positioned. Infundibulum was dissected. Cystic duct was dissected and followed back to the gallbladder. Cystic artery was dissected and followed onto the wall of the gallbladder. Cystic duct was transected using the Endo CHRISTOPHE stapler. Cystic artery was clipped with four clips and divided. The gallbladder was then from the hepatic bed using electrocautery. It was placed in an Endopouch and retrieved. No drains were needed. Irrigation was carried out. CO2 was allowed to escape from the abdomen and the ports were removed. The fascia at the umbilicus was closed with 0 Vicryl. Skin incisions were closed with candace. Tegaderm dressing was placed. The patient tolerated the procedure well. She was awakened and transferred to a bed, and taken to the postanesthetic care unit in stable, satisfactory condition. LCS:aureliano Job ID: [id number] Doc ID: [id number] Edi Rocha M.D.
== END 2021-05-31 16:00 | disposition home or self-care (01) ==
LOC: ED 13:48 → MEDSUR 13:48
PROVIDERS: ADMIT Family Medicine Adult Medicine; ATTEND Family Medicine Adult Medicine